=== PATIENT | female | born 1990 | race Caucasian/White ===

== ENCOUNTER 2017-03-27 14:27 | Emergency (ER) | payer MEDICAID, OTHER ==
[2017-03-27 15:06] VITALS: BP 94/63; PULSE 81; RESP 20; TEMP 98.3; O2SAT 100
[2017-03-27 15:27] VITALS: BMI 40.2
--- NOTE | 2017-03-27 15:59 | C.PDOC ---
History Of Present Illness 26 y/o overweight female slipped and fell in bath, landing on her back at 10 am today. did not hit head, no loc. no analgesics taken. pain worse with movement , better supine. no bladder or bowel dysfunction. no neck pain. no hx prior back problems. Time Seen by Provider: 03/27/17 15:23 Chief Complaint (Nursing): Back Pain History Per: Patient History/Exam Limitations: no limitations Onset/Duration Of Symptoms: Hrs (6) Current Symptoms Are (Timing): Worse Quality Of Discomfort: "Pain" Severity: Moderate Previous Symptoms: None Associated Symptoms: denies: Incontinence, New Weakness, New Numbness Exacerbating Factor(s): Movement Recent travel outside of the [place]: No Past Medical History Reviewed: Historical Data, Nursing Documentation, Vital Signs Vital Signs: Last Vital Signs Temp 98.3 F 03/27/17 15:05 Pulse 81 03/27/17 15:05 Resp 20 03/27/17 15:05 BP 94/63 L 03/27/17 15:05 Pulse Ox 100 03/27/17 16:13 - Medical History PMH: No Chronic Diseases, Migraine Surgical History: No Surg Hx Family History: States: Unknown Family Hx - Social History Hx Alcohol Use: No Hx Substance Use: No - Immunization History Hx Tetanus Toxoid Vaccination: No Hx Influenza Vaccination: No Hx Pneumococcal Vaccination: No Review Of Systems Constitutional: Negative for: Fever, Chills Cardiovascular: Negative for: Chest Pain Gastrointestinal: Negative for: Vomiting, Abdominal Pain Genitourinary: Negative for: Dysuria, Frequency Musculoskeletal: Positive for: Back Pain. Negative for: Neck Pain, Leg Pain Neurological: Negative for: Weakness, Numbness Physical Exam - Physical Exam Appears: Non-toxic, Other (appears uncomfortable) Skin: Warm, Dry Head: Atraumatic, Normacephalic Gastrointestinal/Abdominal: Bowel Sounds, Soft, No Tenderness Back: Normal Inspection, Vertebral Tenderness (lumbosacral area), Decreased ROM (secondary to pain), Paraspinal Tenderness (bilaterallumbar area), Straight Leg Raising Neurological/Psych: Oriented x3, Normal Cognition, Normal Motor, Normal Sensation ED Course And Treatment O2 Sat by Pulse Oximetry: 100 Medical Decision Making Medical Decision Makin y/.o female with acute low back pain /sp fall; upreg, nsaids. xr ls spine. re -eval 512 pm xray reviewed, no fx noted. pt feeling much better after toradol, will d /c Disposition Counseled Patient/Family Regarding: Studies Performed, Diagnosis, Need For Followup, Rx Given - Disposition Referrals: Clinic,Med Surg [Primary Care Provider] - [facility] Disposition: HOME/ ROUTINE Disposition Time: 17:12 Condition: IMPROVED Additional Instructions: Cold compresses to lower back several times a day for 15-20 min at a times. Take ibuprofen as prescribed. Take muscle relaxant when at home, not when working or operating machinery. Follow up with your doctor in a few days. Prescriptions: Cyclobenzaprine [Cyclobenzaprine HCl] 10 mg PO Q8 #9 tab Ibuprofen [Motrin] 600 mg PO TID #30 tab Instructions: Acute Low Back Pain (ED) Forms: General Discharge Instructions - Clinical Impression Clinical Impression: Low back pain, Fall from slipping on wet surface
--- NOTE | 2017-03-27 18:37 | RAD ---
PROCEDURE: Radiographs of the Lumbar Spine. HISTORY: fall onto back, lumbar pain COMPARISON: No prior. FINDINGS: BONES: No acute compression fractures n rendon or retropulsed fragments. Vertebral bodies exhibit normal stature on the and alignment. Facets normally aligned. DISC SPACES: The disc space heights maintained. OTHER FINDINGS: None. IMPRESSION: No definitive radiographic evidence of acute displaced fracture nor retropulsed fragments. . Consider followup CT scan if further evaluation is required
== END 2017-03-27 17:35 | disposition home or self-care (01) ==
LOC: SUPCPDRO 14:27 → C.ER 14:27
DX: M54.5 Low back pain (principal); W01.0XXA Fall on same level from slipping, tripping and stumbling without subsequent striking against object, initial encounter
CPT/HCPCS: 72100; 96372; 99283; J1885

== ENCOUNTER 2017-04-24 22:36 | Emergency (ER) | payer MEDICAID ==
[2017-04-24 22:37] VITALS: BMI 40.2
[2017-04-24 22:49] VITALS: BP 118/81; PULSE 103; RESP 18; TEMP 97.9; O2SAT 99
--- NOTE | 2017-04-24 23:13 | C.PDOC ---
History Of Present Illness A 26 y/o F c/o diffuse joint pain and swelling for the past few days. Pt notes it hurts to walk because of bilateral foot pain. Denies trauma, dizziness, fever , chills, URI symptoms, weakness, numbness, or any other complaints. Pt took no meds for the pain. Time Seen by Provider: 04/24/17 22:53 Chief Complaint (Nursing): Lower Extremity Problem/Injury History Per: Patient History/Exam Limitations: no limitations Onset/Duration Of Symptoms: Days Current Symptoms Are (Timing): Still Present Severity: Mild Recent travel outside of the [place]: No Additional History Per: Patient Past Medical History Reviewed: Historical Data, Nursing Documentation, Vital Signs Vital Signs: Last Vital Signs Temp 97.9 F 04/24/17 22:45 Pulse 103 H 04/24/17 22:45 Resp 18 04/24/17 22:45 BP 118/81 04/24/17 22:45 Pulse Ox 99 04/25/17 00:07 - Medical History PMH: Migraine Family History: States: Unknown Family Hx - Social History Hx Alcohol Use: No Hx Substance Use: No - Immunization History Hx Tetanus Toxoid Vaccination: No Hx Influenza Vaccination: No Hx Pneumococcal Vaccination: No Review Of Systems Except As Marked, All Systems Reviewed And Found Negative. Constitutional: Negative for: Fever, Chills, Other (Trauma) ENT: Negative for: Nose Discharge, Nose Congestion, Throat Pain Respiratory: Negative for: Cough Musculoskeletal: Positive for: Foot Pain (Bilateral foot pain), Other (Diffuse joint pain and swelling) Neurological: Negative for: Weakness, Numbness, Dizziness Physical Exam - Physical Exam Appears: Non-toxic, No Acute Distress, Other (moderately obese) Skin: Warm, Dry Head: Atraumatic, Normacephalic Eye(s): bilateral: Normal Inspection, PERRL Extremity: Normal ROM (of both UE and LE), No Tenderness (No knee tenderness or swelling), Pedal Edema (Minimal pedal edema bilaterally), No Calf Tenderness, Capillary Refill (<2secs), No Deformity, Swelling (minimal b/l foot) Extremity: Bilateral: Normal Color And Temperature Pulses: Left Radial: Normal, Right Radial: Normal, Left Dorsalis Pedis: Normal, Right Dorsalis Pedis: Normal Neurological/Psych: Oriented x3, Normal Speech, Normal Cognition, Normal Cranial Nerves, Normal Motor, Normal Sensation, Other (No focal deficit) Gait: Steady ED Course And Treatment O2 Sat by Pulse Oximetry: 99 (RA) Pulse Ox Interpretation: Normal Progress Note: Impression: A 26 y/o F c/o diffuse joint pain and swelling and for the past few days. Plans: Reassess. Pt is in no acute distress at this time. Pt is improving with the joint pain and foor pain. Pt was discharge and instructed to follow up with her PMD within 1-2 days for further evaluation. Disposition Counseled Patient/Family Regarding: Diagnosis - Disposition Referrals: [facility] [Outside] Jazmine Sifuentes FNP [Primary Care Provider] - Disposition: HOME/ ROUTINE Disposition Time: 23:12 Condition: STABLE Additional Instructions: Please follow up with PMD Leg elevation Take motrin for pain Return to ER if worse Prescriptions: Ibuprofen [Motrin] 600 mg PO Q6H #20 tab Instructions: Arthralgia (ED) - Clinical Impression Clinical Impression: Arthralgia - Scribe Statement The provider has reviewed the documentation as recorded by the Scribzane carver All medical record entries made by the Scribe were at my direction and personally dictated by me. I have reviewed the chart and agree that the record accurately reflects my personal performance of the history, physical exam, medical decision making, and the department course for this patient. I have also personally directed, reviewed, and agree with the discharge instructions and disposition.
== END 2017-04-24 23:47 | disposition home or self-care (01) ==
LOC: C.ER 22:36 → SUPCPDRO 22:36 → C.ER 23:47
DX: M25.572 Pain in left ankle and joints of left foot (principal); M25.571 Pain in right ankle and joints of right foot

== ENCOUNTER 2018-05-08 10:08 | Emergency (ER) | payer OTHER ==
[2018-05-08 10:09] VITALS: BMI 42.0
[2018-05-08 12:00] LABS: BASO # 0.1 K/uL (0.0-0.2); EOS # 0.1 K/uL (0.0-0.7); EOS % 1.4 % (0.0-4.0); HEMOGLOBIN 11.4 g/dL (11.0-16.0); LYMPH # 2.9 K/uL (1.0-4.3); LYMPH % 40.1 % (20.0-40.0); MEAN CORPUSCULAR HGB CONC 33.8 g/dL (33.0-37.0); MEAN PLATELET VOLUME 7.5 fL (7.2-11.7); MONO # 0.4 K/uL (0.0-0.8); MONO % 5.7 % (0.0-10.0); NEUT # 3.7 K/uL (1.8-7.0); NEUT % 51.8 % (50.0-75.0); RBC 4.06 Mil/uL (3.80-5.20); RED CELL DISTRIBUTION WIDTH 14.4 % (11.5-14.5); WHITE BLOOD COUNT 7.1 K/uL (4.8-10.8)
[2018-05-08 12:05] LABS: HCG,QUALITATIVE URINE NEGATIVE (NEGATIVE)
[2018-05-08 12:12] LABS: SQUAMOUS EPITHIAL 25 /hpf (0-5); URINE BACTERIA RARE (<OCC); URINE BILIRUBIN NEGATIVE (NEGATIVE); URINE BLOOD 1+ (NEGATIVE); URINE CLARITY Hazy (Clear); URINE COLOR Yellow (YELLOW); URINE GLUCOSE (UA) NORMAL (Normal); URINE LEUKOCYTE ESTERASE TRACE Leu/uL (Negative); URINE PROTEIN NEGATIVE (NEGATIVE); URINE UROBILINOGEN NORMAL mg/dL (0.2-1.0)
--- NOTE | 2018-05-08 12:13 | C.PDOC ---
History Of Present Illness 27-year-old female, presents to the emergency department with complaints of diffuse abdominal pain ongoing for the past two weeks. Pain worsens when she eats, and is mostly in left lower quadrant/left flank area. She notes dysuria and painful bowel movements. She denies fever, chills, nausea/vomiting, or any other associated symptoms. No other complaints at this time. Time Seen by Provider: 05/08/18 10:40 Chief Complaint (Nursing): Abdominal Pain History Per: Patient History/Exam Limitations: no limitations Onset/Duration Of Symptoms: Days Severity: Moderate Past Medical History Reviewed: Historical Data, Nursing Documentation, Vital Signs Vital Signs: Last Vital Signs Temp 98.1 F 05/08/18 10:12 Pulse 80 05/08/18 10:12 Resp 18 05/08/18 10:12 BP 105/73 05/08/18 10:12 Pulse Ox 100 05/08/18 12:19 - Medical History PMH: Migraine Denies: Chronic Kidney Disease Family History: States: No Known Family Hx - Social History Hx Alcohol Use: Yes Hx Substance Use: No - Immunization History Hx Tetanus Toxoid Vaccination: No Hx Influenza Vaccination: No Hx Pneumococcal Vaccination: No Review Of Systems Constitutional: Negative for: Fever, Chills Cardiovascular: Negative for: Chest Pain, Palpitations Gastrointestinal: Positive for: Abdominal Pain Genitourinary: Positive for: Dysuria Musculoskeletal: Positive for: Back Pain Neurological: Negative for: Weakness, Numbness, Headache, Dizziness Physical Exam - Physical Exam Appears: Non-toxic, No Acute Distress Skin: Normal Color, Warm, Dry, No Rash Head: Atraumatic, Normacephalic Eye(s): bilateral: Normal Inspection, PERRL, EOMI Nose: Normal Oral Mucosa: Moist Lips: Normal Appearing Neck: Normal ROM Cardiovascular: Rhythm Regular, No Murmur Respiratory: Normal Breath Sounds, No Accessory Muscle Use Gastrointestinal/Abdominal: Soft, Tenderness (Obese, diffuse), No Guarding, No Rebound Back: CVA Tenderness (Left) Pelvic: Normal External Exam, No Vaginal Bleeding, No Vaginal Discharge Extremity: Normal ROM, No Deformity, No Swelling Neurological/Psych: Oriented x3, Normal Speech ED Course And Treatment - Laboratory Results Result Diagrams: 05/08/18 11:54 05/08/18 11:54 O2 Sat by Pulse Oximetry: 100 (RA) Pulse Ox Interpretation: Normal Medical Decision Making Medical Decision Making: Plan: * CT Abd/Pel * CMP, Lipase * CBC * UA/HCG * Reassess and Disposition Disposition - Disposition Disposition Time: 12:20 Condition: STABLE Forms: [facility] ([place]) - Clinical Impression Clinical Impression: Abdominal pain - Scribe Statement The provider has reviewed the documentation as recorded by the Scribe (Erika hernandez) All medical record entries made by the Scribe were at my direction and personally dictated by me. I have reviewed the chart and agree that the record accurately reflects my personal performance of the history, physical exam, medical decision making, and the department course for this patient. I have also personally directed, reviewed, and agree with the discharge instructions and disposition. Physician Patient Turnover Patient Signed Over To: Raudel Ramos Handoff Comments: 12:00. Pending CT scan, Disposition Decision To Admit - . Patient Diagnosis: Abdominal pain
[2018-05-08 12:15] LABS: ALB/GLOB RATIO 1.3 (1.0-2.1); ALBUMIN 3.9 g/dL (3.5-5.0); ALT/SGPT 27 U/L (9-52); AST/SGOT 14 U/L (14-36); BLOOD UREA NITROGEN 16 mg/dL (7-17); GFR AFRICAN-AMERICAN > 60; GFR NON-AFRICAN AMERICAN > 60; LIPASE 46 U/L (23-300)
--- NOTE | 2018-05-08 13:12 | CT ---
Date of service: 05/08/2018 PROCEDURE: CT Abdomen and Pelvis without intravenous contrast HISTORY: abdominal pain COMPARISON: None. TECHNIQUE: Contiguous images were obtained from the domes of the diaphragms to the upper thighs without the administration of intravenous contrast. Oral contrast was not administered. Radiation dose: Total exam DLP = 1189.0 mGy-cm. This CT exam was performed using one or more of the following dose reduction techniques: Automated exposure control, adjustment of the mA and/or kV according to patient size, and/or use of iterative reconstruction technique. FINDINGS: LOWER THORAX: Unremarkable. LIVER: Unremarkable. No gross lesion or ductal dilatation. GALLBLADDER AND BILE DUCTS: Unremarkable. PANCREAS: Unremarkable. No gross lesion or ductal dilatation. SPLEEN: Unremarkable. ADRENALS: Unremarkable. No mass. KIDNEYS AND URETERS: Unremarkable. No hydronephrosis. No solid mass. VASCULATURE: Unremarkable. No aortic aneurysm. BOWEL: Unremarkable. No obstruction. No gross mural thickening. APPENDIX: Unremarkable. Normal appendix. PERITONEUM: Unremarkable. No free fluid. No free air. LYMPH NODES: Unremarkable. No enlarged lymph nodes. BLADDER: Unremarkable. REPRODUCTIVE: Left adnexal cyst measuring 4.2 x 3.9 cm. BONES: No acute fracture. OTHER FINDINGS: None. IMPRESSION: No obstructive uropathy or evidence of recently passed genitourinary calculus. Left adnexal cyst measuring 4.2 x 3.9 cm. Pelvic ultrasound can be obtained for further evaluation as clinically warranted.
[2018-05-08 13:47] VITALS: PULSE 78; RESP 16; TEMP 98.7
--- NOTE | 2018-05-08 15:36 | US ---
Date of service: 05/08/2018 HISTORY: llq pain and abn. ct scan COMPARISON: Correlations made to CT scan of the abdomen and pelvis performed earlier the same day. TECHNIQUE: Grayscale, color Doppler and spectral evaluation the pelvis performed transabdominally. FINDINGS: UTERUS: Measures 8.4 x 2.6 x 4.6 cm. Normal in size and appearance. No fibroid or other mass lesion seen. ENDOMETRIUM: Measures 6 mm in diameter. Unremarkable. CERVIX: No cervical abnormality identified. RIGHT OVARY: Measures 2.5 x 1.5 x 2.8 cm. No solid mass. Normal flow. LEFT OVARY: Measures 4.5 x 2.8 x 4.2 cm. Left ovarian cyst measuring 3.9 x 2.4 x 3.4 cm. Normal flow. FREE FLUID: No significant free fluid noted. OTHER FINDINGS: None. IMPRESSION: Left ovarian cyst measuring up to 3.9 cm. Symmetric Doppler flow to both ovaries.
[2018-05-08 16:45] VITALS: BP 102/71; O2SAT 99
== END 2018-05-08 16:46 | disposition home or self-care (01) ==
LOC: C.ER 10:08
DX: N83.209 Unspecified ovarian cyst, unspecified side (principal); R10.32 Left lower quadrant pain

== ENCOUNTER 2019-01-15 10:42 | Outpatient (CLI) | payer OTHER | END 2019-01-15 10:43 | disposition home or self-care (01) | LOC: C.USIC 10:43 ==